=== PATIENT | female | born 1995 | race African-American/Black ===

== ENCOUNTER 2022-05-21 08:41 | Day surgery (SDC) | payer SELFPAY ==
[2022-05-21] MEDS ORDERED: propofoL 200 MG/20 ML VIAL IV ONE (09:27)
[2022-05-21] MEDS ORDERED: FENTANYL CITR 100 MCG/2 ML ONE (09:27)
[2022-05-21] MEDS ORDERED: MIDAZOLAM HCL 2 MG/2 ML INJ ONE (09:27)
[2022-05-21] MEDS ORDERED: LIDOCAINE 2% MPF 5 ML VIAL ONE (09:28)
[2022-05-21] MEDS ORDERED: dexAMETHasone 10 MG/ML VIAL ONE (09:28)
[2022-05-21] MEDS ORDERED: NS 0.9% VIAL 10 ML ONE ×4 (09:28→12:05)
[2022-05-21] MEDS ORDERED: VECURONIUM 10 MG/VIAL IV ONE ×2 (09:28→11:32)
[2022-05-21] MEDS ORDERED: KETOROLAC 30 MG/ML INJ ONE ×2 (09:28→16:17)
[2022-05-21] MEDS ORDERED: ONDANSETRON 4 MG/2 ML VIAL ONE (09:30)
[2022-05-21] MEDS ORDERED: CEFAZOLIN SODIUM 1 GM/VIAL ONE ×3 (09:36→11:23)
[2022-05-21] MEDS ORDERED: NS 0.9% VIAL 30 ML ONE (09:36)
[2022-05-21] MEDS ORDERED: GENTAMICIN SULF 80 MG/2ML INJ ONE (09:36)
[2022-05-21] MEDS ORDERED: LIDOCAINE 1% W/EPI 1:100,000 MDV 50 ML VIAL ONE (09:37)
[2022-05-21] MEDS ORDERED: Ringers Lactate 1,000 ML IV ONE ×3 (09:37→14:55)
[2022-05-21] MEDS ORDERED: Mastisol Adhesive Liq ONE (09:37)
[2022-05-21] MEDS ORDERED: LIDOCAINE 1% W/EPI 1:100,000 10 ML VIAL ONE (09:40)
[2022-05-21] MEDS ORDERED: CELECOXIB 100 MG CAPSULE ONE (09:59)
[2022-05-21] MEDS ORDERED: ACETAMINOPHEN 500 MG TAB ONE (09:59)
[2022-05-21] MEDS ORDERED: SCOPOLAMINE HYDROBROMIDE PATCH TD ONE (10:06)
[2022-05-21 10:09] LABS: SARS-CoV-2 Antigen Rapid Res Negative (Negative)
[2022-05-21] MEDS ORDERED: LANO/MINERAL OIL/PETRO 3.5 GM ONE (11:01)
[2022-05-21] MEDS ORDERED: Phenylephrine HCl 10 MG/ML 1 ML VIAL ONE (11:18)
[2022-05-21] MEDS ORDERED: MORPHINE 10 MG/ML VIAL ONE (14:08)
[2022-05-21] MEDS: HYDROMORPHONE HCL 1 MG/ML INJ ONE ×2 (15:18→15:25)
[2022-05-21] MEDS ORDERED: HYDROCODONE/APAP 5/325 MG TAB PO ONE (16:05)
[2022-05-21] MEDS ORDERED: HYDROCODONE/APAP 5/325 MG TAB ONE (16:17)
[2022-05-21 16:21] VITALS: BP 122/62; TEMP 98.1; O2SAT 100
--- NOTE | 2022-05-22 02:24 | OP ---
Surgeon: Robin Pabon MD Drywall Finisher: Vlad. Preoperative Diagnosis: Breast descent. Postoperative Diagnosis: Breast descent. Procedure Performed: Breast lift. Anesthesia: General. Procedure In Detail: After satisfactory induction of general anesthesia, the chest was prepped with DuraPrep and dry sterile drapes applied in usual manner. A 15 mm template was used to outline the ri ght and left areola then incision was made and dissection proceeded down superficially. Then a trans verse curvilinear incision was made. Intervening skin was de-epithelialized with dermabrader after c ut with tenotomy scissors. Both sides were then . We made incision at the right breast. Flap was elevated at 1.5 cm thick towards the sternum, clavicle, anterior axillary line. Then inferi or incision was made and with 2-0 PDS suture. After this was done, excess breast tissue l aterally was excised and straps elevated over at 12 o'clock, 1:30 and 3 o'clock position. Straps wer e then woven in a tied to themselves with 2-0 PDS sutures at the 12 o'clock and 1:30 strap s. The 3 o'clock strap was sewn over the sternum at 3 o'clock position with 2-0 Ethibond. _ left side done in a mirror-image manner. We then returned to the right side and marked out the dog ears medial and lateral and excised them. Electrocautery was used for hemostasis. Wound was irriga jasmine with antibiotic solution. 10 MELISSA was brought out through the axilla and sewn in place with 2-0 si lk and the wound was closed with 3-0 Vicryl subcu and 3-0 PDS running subcuticular tied from medial t o lateral and lateral to medial, tied in vertical running. The left side was done in a mirror-image m malina and then patient was sat up, site for new nipple-areolar complex was marked out, tissue cored o ut and nipple-areolar complex delivered and sewn with interrupted 4-0 PDS followed by 5-0 PDS, runnin g subcuticular. Drains were sewn in place with 2-0 silk at 10 MELISSA. Dressing consisted of 5 x 5, fluf fs, Maxwell wrap, tincture of benzoin and Steri-Strips were applied. The patient tolerated procedure wel l. The amount removed from the right breast was 250 and left breast was 218. IDRIS/USHA Voice ID: [id number] Report ID: [id number]
--- NOTE | 2022-05-22 02:40 | HP ---
Date of Admission: 05/21/2022 History Of Present Illness: A -[id number]-qal black female who requests a breast lift. She ____ done breast lift x2. Social History: Does not smoke, does . Physical Examination: She has large ptotic breasts. Assessment: Breast descent, ptosis. Plan: Breast lift. ALBERTA Voice ID: [id number]
== END 2022-05-21 17:27 | disposition home or self-care (01) ==
LOC: OR 08:41
PROVIDERS: ATTEND Specialist
PROC: 0HSV0ZZ Reposition Bilateral Breast, Open Approach (ICD-10-PCS; principal; 2022-05-21 09:00)
DX: N64.81 Ptosis of breast (principal)
CPT/HCPCS: 36415; 81025; 87811; 88305; A4216; J0690; J1100; J1170; J1580; J2001; J2250; J2370; J2405; J2704; J3010; J7120